=== PATIENT | female | born 1940 | race Caucasian/White ===

== ENCOUNTER → 2016-10-31 | Outpatient (CLI) | payer OTHER, BC | LOC: CIMAGING 12:33 | DX: Z12.31 Encounter for screening mammogram for malignant neoplasm of breast (principal) | CPT/HCPCS: G0202 ==

== ENCOUNTER 2017-06-13 15:47 | Emergency (ER) | payer OTHER, BC ==
--- NOTE | 2017-06-13 16:44 | CPEKG ---
Heart Rate: 70 RR Interval: 857 P-R Interval: 140 QRSD Interval: 78 QT Interval: 364 QTC Interval: 393 P Windfall: 46 QRS Windfall: -17 T Wave Windfall: 40 EKG Severity - OTHERWISE NORMAL ECG - EKG Impression: SINUS RHYTHM EKG Impression: BORDERLINE LEFT AXIS DEVIATION Electronically Signed By: Svetlana Gao 13-Jun-2017 21:19:09
--- NOTE | 2017-06-13 16:46 | EDPHY ---
H & P Stated Complaint: since sunday worsening "reflux" sent by PCP HPI/ROS: CHIEF COMPLAINT: Exhaustion, diarrhea HISTORY OF PRESENT ILLNESS: The patient is a 77 y/o female with a history of migraines and GERD complaining of exhaustion, stomach cramps, diarrhea, and chest pain onset 4 days ago. A week ago she woke up with a rash over 80 % of her body. She saw her PCP, Dr. Burnett for the rash and was given a three day course of prednisone. The rash mostly resolved. Four days ago, she started feeling exhausted. Last night she began experiencing stomach cramps and had several episodes of diarrhea. This morning, after both breakfast and dinner she had pain extending laterally across her chest that lasted 1.5 hours each time before resolving. She consulted her PCP who directed her to the ED. She denies fever, jaw pain, arm pain, vomiting, leg swelling or pain, or any other associated symptoms. She denies history of cardiac problems, hypertension, hyperthyroidism, hypothyroidism, or diabetes. REVIEW OF SYSTEMS: A ten point review of systems was performed and is negative with the exception of the items mentioned in the HPI. Past medical history: 1. Migraines 2. 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 Vital signs reviewed. Eyes: Pupils equal and round, no conjunctival injection, no discharge. Anicteric. ENT, Mouth: Mucous membranes are moist, no oropharyngeal erythema or edema. Neck: No lymphadenopathy, supple. Nontender to palpation over cervical spine. Respiratory: Lungs are clear to auscultation; no wheezes, rales, or rhonchi. Pain between shoulder blades. Cardiovascular: Regular rate and rhythm; no murmur, rub, or gallop. Gastrointestinal: Abdomen is soft and nontender, no masses or organomegaly, bowel sounds normal. Skin: Warm and dry, no rashes on exposed skin, normal color. Back: Nontender to palpation over the thoracolumbar spine. No CVAT. Extremities: No lower extremity edema, no calf tenderness or swelling. Neurological: Alert and oriented. Moving all four extremities easily and equally. Psychiatric: Normal affect. - Personal History Current Tetanus Diphtheria and Acellular Pertussis (TDAP): No - Medical/Surgical History Hx Asthma: No Hx Chronic Respiratory Disease: No Hx Diabetes: No Hx Cardiac Disease: No Hx Renal Disease: No Hx Cirrhosis: No Hx Alcoholism: No Hx HIV/AIDS: No Hx Splenectomy or Spleen Trauma: No Other PMH: glacoma, hyperlipidemia, gastric ulcer, GERD - Social History Smoking Status: Never smoked Constitutional: Initial Vital Signs Temperature (C) 36.8 C 06/13/17 15:53 Heart Rate 83 06/13/17 15:53 Respiratory Rate 16 06/13/17 15:53 Blood Pressure 137/70 H 06/13/17 15:53 O2 Sat (%) 98 06/13/17 15:53 O2 Delivery Mode Room Air Allergies/Adverse Reactions: codeine Allergy (Verified 06/27/15 00:41) erythromycin base [Erythromycin Base] Allergy (Verified 06/27/15 00:41) Home Medications: Medication Instructions Recorded Estrace Vaginal (*) 06/13/17 Imitrex 06/13/17 Maxalt 06/13/17 Prilosec 06/13/17 Zantac 06/13/17 Medical Decision Making ED Course/Re-evaluation: The 12 lead EKG was interpreted by myself. Sinus rhythm. See hard copy and/or "tracemaster" electronic copy for interpretation. I reassessed the patient and informed her of the results of her workup which is largely negative--CBC, BMP, troponin, CXR, and EKG. Given her exhaustion and chest pain, the concern is for ACS. She has been having symptoms for days and I would expect to see a change in her EKG or troponin in the setting of ACS. She and I discussed this and she understands that CAD/ACS cannot be 100% ruled out in the ED. HEART score is 2--low risk for MACE. I do not suspect PE or pnemonia. I feel that she is safe to return home with close follow up with her primary care provider. She agrees to this course of action. Follow-up instructions and return precautions given. The patient feels her symptoms may be related to a viral syndrome or acid reflux. I agree. Differential Diagnosis: DDX includes but is not limited to ACS, PE, pulmonary infection, pericarditis, GERD. - Data Points Laboratory Results: Laboratory Results 06/13/17 17:15 06/13/17 16:52 Medications Given: Discontinued Medications Aspirin (Aspirin) 324 mg PO EDNOW ONE Stop: 06/13/17 17:16 Last Admin: 06/13/17 17:26 Dose: 324 mg Departure - Departure Disposition: Home, Routine, Self-Care Clinical Impression: Chest pain Qualifiers: Chest pain type: unspecified Qualified Code(s): R07.9 - Chest pain, unspecified Condition: Good Instructions: Chest Pain (ED) Additional Instructions: 1. Eat and drink lots of fluids. Get plenty of rest. 2. Follow-up with Dr. Burnett as planned. 3. Return to the ED for chest pain, shortness of breath, sweating, nausea, vomiting, or any other worsening of condition. Referrals: Arianna Burnett MD [Primary Care Provider] - As per Instructions Report Scribed for: Svetlana Gao Report Scribed by: Lissett Walker Date of Report: 06/13/17 Time of Report: 17:46 Physician Review and Approval Statement: 06/13/17 16:46 Portions of this note were transcribed by the medical office rep. I, Dr. Svetlana Gao, personally performed the history, physical exam, and medical decision- making; and confirmed the accuracy of the information in the transcribed note.
[2017-06-13] MEDS ORDERED: ASPIRIN 81 MG CHEWABLE TAB PO ONE (17:15)
[2017-06-13 17:21] LABS: PLATELET COUNT 274 10^3/uL (150-400)
[2017-06-13 20:04] VITALS: BP 144/86; PULSE 72; RESP 18; TEMP 98.6; O2SAT 97
== END 2017-06-13 19:55 | disposition home or self-care (01) ==
DX: R07.9 Chest pain, unspecified (principal)

== ENCOUNTER → 2018-04-04 | Outpatient (CLI) | payer OTHER, BC ==
[~2018-04-04] MED LIST: IOPAMIDOL (ISOVUE-300) 100 ML BTL ONE
== END ==
LOC: FIMAGING 09:42
PROVIDERS: ATTEND Internal Medicine
DX: R10.816 Epigastric abdominal tenderness (principal); R11.0 Nausea; R63.0 Anorexia; K59.00 Constipation, unspecified
CPT/HCPCS: 74170; Q9967; 82565-PO